=== PATIENT | female | born 1955 | race Caucasian/White ===

== ENCOUNTER → 2018-01-15 | Outpatient (CLI) | payer OTHER ==
[2017-10-02 15:25] VITALS: BMI 32.5
[~2018-01-15] MED LIST: ASPI-757 PO; HYDR-2966 PO; NALT50TA15 PO; OXYC-373 PO; SERT-184 PO; VAL80 PO; VALS-25 PO
[2018-01-15 08:51] LABS: PLATELET COUNT, AUTOMATED 229 K/uL (150-450)
[2018-01-15 09:33] LABS: LDL CHOLESTEROL 88 mg/dl
== END ==
LOC: LAB 08:32
PROVIDERS: ATTEND Nurse Practitioner Psychiatric/Mental Health
DX: Z00.00 Encounter for general adult medical examination without abnormal findings (principal)
CPT/HCPCS: 36415; 81001; 82040; 82247; 82310; 82374; 82435; 82465; 82565; 82947; 83718; 84075; 84132; 84155; 84295; 84443; 84450; 84460; 84478; 84520; 85025

== ENCOUNTER 2018-02-04 01:26 | Inpatient (IN) | payer OTHER ==
[2018-02-03 14:29] LABS: INR 1.01
[2018-02-04] VITALS (12 sets, daily range): BP systolic 125–157; BP diastolic 67–119
[~2018-02-04] VITALS: Ht 165.1 cm; Wt 88.5 kg
[2018-02-04] MEDS ORDERED: NORMOSOL R SOLN(*) 1000 ML BAG 1,000 ML IV PRN (07:00)
[2018-02-04] MEDS ORDERED: LIDOCAINE/SOD BICARB 8.4% SYR ID ONE (07:00)
[2018-02-04] MEDS ORDERED: cloNIDine EPIDUR INJ 100MCG/ML 40 MCG, ROPIVACAINE 0.5% 20 ML VIAL 25 ML, EPINEPHrine H... INJ ONE (07:00)
[2018-02-04] MEDS ORDERED: ceFAZolin(*) 2GM/D5W 50ML 50 ML IVPB ONE (07:00)
[2018-02-04] MEDS ORDERED: MIDAZOLAM 2 MG/2 ML VIAL IVP ONE (07:00)
[2018-02-04] MEDS ORDERED: TRANEXAMIC AC 1000 MG/10ML SDV 1,000 MG in DEXTROSE 5% 50 ML BAG 50 ML IV ONE (07:00)
[2018-02-04] MEDS ORDERED: FAMOTIDINE 20 MG TAB PO ONE (07:00)
[2018-02-04] MEDS ORDERED: BACITRACIN 50000 UNIT/VIAL 100,000 UNIT in NS 0.9% 3000 ML IRRIGATION BAG 3,000 ML IR ONE (07:00)
[2018-02-04] MEDS ORDERED: DEXMEDETOMIDINE HCL 200 MCG/2 ML IV ONE (08:00)
[2018-02-04] MEDS ORDERED: LABETALOL HCL 100 MG/20ML VIAL ONE (08:00)
[2018-02-04] MEDS ORDERED: ROCURONIUM BROM 10 MG/ML 5 ML ONE (08:00)
[2018-02-04] MEDS ORDERED: DEXAMETHASONE SOD PHOS 10MG/ML ONE (08:00)
[2018-02-04] MEDS ORDERED: ONDANSETRON 4 MG/2 ML VIAL ONE (08:00)
[2018-02-04] MEDS ORDERED: MIDAZOLAM 2 MG/2 ML VIAL ONE (08:04)
[2018-02-04] MEDS ORDERED: BUPIVACAINE/EPI 0.5% 50ML VIAL INFIL ONE (08:05)
[2018-02-04] MEDS ORDERED: fentaNYL CITR 100 MCG/2 ML AMP ONE ×3 (08:05→11:13)
[2018-02-04] MEDS ORDERED: HYDROmorphone HCL 2 MG/ML SDV ONE (08:49)
[2018-02-04] MEDS ORDERED: KETAMINE HCL 500 MG/10 ML VIAL ONE (09:13)
[2018-02-04] MEDS ORDERED: ZOLPIDEM TARTRATE 5 MG TAB PO PRN (11:15)
[2018-02-04] MEDS ORDERED: FLUSH 10 ML SYR IVP PRN (11:15)
[2018-02-04] MEDS ORDERED: MAGNESIUM HYDROXIDE* 30ML UDCP PO PRN (11:15)
[2018-02-04] MEDS ORDERED: LR 1000 ML BAG 1000 ML IV PRN (11:15)
[2018-02-04] MEDS ORDERED: diphenhydrAMINE 50 MG/ML VIAL IVP PRN (11:15)
[2018-02-04] MEDS ORDERED: BISACODYL 10 MG SUPP PR PRN (11:15)
[2018-02-04] MEDS ORDERED: ONDANSETRON 4 MG/2 ML VIAL IVP PRN (11:15)
[2018-02-04] MEDS ORDERED: diphenhydrAMINE 25 MG CAP PO PRN (11:15)
[2018-02-04] MEDS ORDERED: PROMETHAZINE 25 MG/ML 1 ML AMP IVP PRN (11:15)
[2018-02-04] MEDS ORDERED: MAGNESIUM CITRATE 300 ML BTL PO PRN (11:15)
--- NOTE | 2018-02-04 11:48 | RADIOLOGY IMAGING REPORT ---
FACILITY: [facility] PATIENT NAME: Lara Ch : 1955 MR: [id number] V: [id number] EXAM DATE: ORDERING PHYSICIAN: DUNIA LEIVA TECHNOLOGIST: Location: [facility] Patient: Lara Ch : 1955 Visit/Account:[id number] Date of Sevice: 02/04/2018 Technique: KNEE LIMITED RIGHT HISTORY: S/P R TKA Comparison studies: None FINDINGS: Present is a right knee arthroplasty. There is gross anatomic alignment. No acute fractur e. Expected adjacent postoperative changes are present. IMPRESSION: 1. Right knee arthroplasty without evidence of acute hardware complication. Report Dictated By: Gonzales Lamar DO at 02/04/2018 11:43 AM Report E-Signed By: Gonzales Lamar DO at 02/04/2018 11:44 AM WSN:[id number]
[2018-02-04] MEDS: HYDROmorphone HCL 2 MG/ML SDV IVP PRN ×2 (12:45→18:21)
--- NOTE | 2018-02-04 13:57 | Hospitalist Consultation ---
History of Present Illness Requesting Physician Dr. Carrion Reason for Consult Medication Management Chief Complaint s/p knee replacement History of Present Illness She was admitted s/p right knee replacement. There were no known complications from surgery. EBL 200cc. History Problems: (1) Essential hypertension Status: Chronic (2) Depression Status: Chronic (3) S/P knee replacement Status: Acute Home Meds Reported Medications Naltrexone Hcl (NALTREXONE HCL) 50 Mg Tablet, 50 MG PO DAILY 09/24/17 Sertraline Hcl (SERTRALINE HCL) 50 Mg Tablet, 1 TAB PO QDAY, TAB 09/24/17 Hydrochlorothiazide (HYDROCHLOROTHIAZIDE) 25 Mg Tablet, 25 TAB PO QDAY, TAB 09/24/17 Valsartan (DIOVAN) 80 Mg Tablet, 80 MG PO DAILY 09/24/17 Allergies: Coded Allergies: No Known Drug Allergies (Verified , 09/24/17) Patient History: FH: Crohn's disease MOTHER, FH: HTN (hypertension) MOTHER, Stent BROTHER OR SISTER Smoking Status: Former Smoker When Quit Tobacco?: 37 year ago Caffeine Intake: Coffee Caffeine/Cups Per Day: 1-2 Hx Alcohol Use: Yes Hx Substance Use Disorder: No Social Drug Use: Never Review of Systems All Systems Reviewed/Normal: Yes, Except as Noted Exam Vital Signs Vital Signs Date Time Temp Pulse Resp B/P (MAP) Pulse Ox O2 Delivery O2 Flow Rate FiO2 02/04/18 13:15 150/78 (102) 98 Nasal Cannula 02/04/18 13:00 66 02/04/18 11:37 98.1 12 4.0 General Appearance: Alert, Awake, No Acute Distress, Afebrile Cardiovascular: Regular Rate and Rhythm Respiratory: No Respiratory Distress, Clear to Auscultation GI: Abd Soft and Non-Tender Psych: Alert & Oriented X3, Appropriate Mood & Affect Assessment and Plan Problems: (1) S/P knee replacement Status: Acute Assessment & Plan: She will be started on ASA 325mg for DVT prophylaxis. (2) Essential hypertension Status: Chronic Assessment & Plan: She is on chronic treatment with Valsartan and Hydrochlorothiazide. She will be started on Valsartan with hold parameters. (3) Depression Status: Chronic Assessment & Plan: She is on chronic treatment with Sertraline. (4) Alcoholism in recovery Status: Chronic Assessment & Plan: She is on chronic treatment with Naltrexone. This will be stopped while she is on narcotics. Venous Thromboembolism Antithrombotics Is Pt On Any Antithrombotics?: No Prophylaxis Tx Contraindicated Pharmacological Contraindicati: Surgical Contraindication Problem Qualifiers (1) S/P knee replacement: Laterality: right Qualified Codes: Z96.651 - Presence of right artificial knee joint JESUS MCCRAYP Feb 04, 2018 13:57
--- NOTE | 2018-02-04 14:15 | OPERATIVE REPORT 1 ---
EVENT DATE: February 04, 2018 SURGEON: Lalo Carrion MD ANESTHESIOLOGIST: Jeyson Kelsey MD ANESTHESIA: General plus adductor block FINANCIAL PROCESSING CLERK: Maycol Conway PA-C PREOPERATIVE DIAGNOSIS Right knee osteoarthritis. POSTOPERATIVE DIAGNOSIS Right knee osteoarthritis. PROCEDURE PERFORMED Right total knee arthroplasty. FINDINGS The patient had a significant amount of arthritic changes associated with the knee, but was amenable for a total knee replacement. ESTIMATED BLOOD LOSS 250 mL. DRAINS None. COMPLICATIONS None. TOURNIQUET TIME About 14 minutes, which was up just during cementation of the components. IMPLANTS [employer] posterior stabilized system with a size 5 femur, a 5 x 6 mm insert , a 4 rotating base plate tibia and a 35 mm anatomic patella. SPECIMENS None. INDICATIONS AND HISTORY This patient is a 62-year-old female who presented to my clinic for evaluation of bilateral knee arthritis and irritation going on for some time. She continued to have pain and irritation despite conservative management and injections. She had the left knee replaced, and so she wanted to go ahead with the right knee today, February 04, 2018. The risks and benefits were discussed with the patient, and informed consent was obtained at the last clinic visit. DESCRIPTION OF PROCEDURE The patient was brought into the operating room. She and the procedure were both verified. She was placed supine on the operative table and given the adductor block by anesthesia. The right lower extremity was then prepped and draped in the usual fashion and time out was observed, verifying the correct patient and procedure. The standard incision was made over the anterior aspect of the knee through the skin and subcutaneous tissue. Once I was able to get through this area, I was then able to identify small bleeders throughout the area and cauterize them in order to make the case a clean, dry, sterile field. Once I did this, I was then able to make a medial parapatellar approach through the quad tendon, and then down around the medial side of the knee. This was then taken through the quad tendon, and then I also peeled back a little bit of the insertion of the MCL in order to gain access to the medial side. I then removed the anterior aspect of the lateral meniscus as well as the medial meniscus and part of the base of the ACL, and then removed the patellar fat pad without any major difficulty. Once I was able to do this, I was then able to remove the synovitic tissue from the suprapatellar aspect, and then was able to flex the knee up into a high flexion moment with the patella everted. I then was able to remove the rest of the ACL and some of the osteophytes off this area. I then drilled an intramedullary guide, and then used the Attune system intramedullary guide to then cut a 5 and 9 cut off the distal femur in order to make it amenable for the sizer. Once the sizer was on, I sized it to a 5, which was actually the same as the contralateral side, and then put in the 4-in-1 cutting block and cut the four cuts without any major difficulty, and we had good positioning and sizing of the block. This was then followed by the notch cutting block, and then removal of the central notch, and then removal of some of the posterior osteophytes off the posterior aspect of the femur. I then turned attention to the tibia, where I was able to put a posterior retractor into this area, and remove the rest of the PCL. I then put in a lateral retractor also and a small Z retractor on the medial side. Once I did this, I was able to remove the remainder of the menisci on both the medial and lateral sides, and then drilled the central intramedullary guide for the Attune system once again. We then put on the cutting jig on the anterior aspect of the knee, cutting a 3 mm aspect off the medial side. Once I did this, I was then able to cut without any difficulty, and we had a nice flat tibia, and sized to a 4 rotating base plate tibia. I then was able to cut the jig for the 4 rotating base plate tibia to put that in, put the 5 femoral trial on, and then put in a 5 mm poly insert. This was found to be a just a little bit too loose, and so we trialed the 6, and the 6 was much better and had better stability associated with the varus/valgus exam and anterior drawer type test and also the patella tracked very naturally. I then turned attention to the patella, where I was able to cut about 7 mm off the patella, and then was able to size it to a 35 mm anatomic patella. This was then drilled in standard fashion and trialed and made sure there were no signs of instability associated with the patella. I then put a lap into the wound, irrigated with copious amounts of saline as I had throughout the case using pulsatile lavage, and then put an Esmarch around the leg, and then put the tourniquet up for cementation of the components. I then cemented in the components without any difficulty and removed the excess cement, and then was able to trial it once again. There were no signs of catching or locking associated with it. Once the cement hardened, I then irrigated again with copious amounts of saline and then closed the medial parapatellar approach with a #1 Stratafix. This was then followed by 2-0 Vicryl in the subcutaneous fat, and then followed by 2-0 Stratafix in the subcutaneous tissue followed by a 4-0 Monocryl in the skin. We also put in a pain cocktail right before cementation, and TXA was utilized by anesthesia. This was then put a seal to the Bioclusive dressing, and the patient was awakened and extubated and transferred to PACU in stable condition. The tourniquet was let down after cementation of the components after 14 minutes, and then we will admit her overnight to the hospital. . TYRA
[2018-02-04] MEDS ORDERED: NS(*) 0.9% 250 ML BAG 250 ML ONE (15:54)
[2018-02-04] MEDS: ceFAZolin(*) 2GM/D5W 50ML 50 ML IVPB SCH ×2 (16:11→23:21)
[2018-02-04] MEDS: ASPIRIN 325 MG TAB PO SCH (20:47)
[2018-02-05 03:54] VITALS: BP 125/70
[2018-02-05 07:56] VITALS: BP 123/65
[2018-02-05] MEDS: SERTRALINE HCL 50 MG TAB PO SCH (08:14)
[2018-02-05] MEDS: ceFAZolin(*) 2GM/D5W 50ML 50 ML IVPB SCH (08:15)
--- NOTE | 2018-02-05 08:42 | Hospitalist Progress Note ---
Subjective Progress Notes Subjective Patient is doing well today. She states she had difficulty sleeping last night. Patient Complains of: Cardiovascular: No: Chest Pain Respiratory: No: Shortness of Breath Physical Exam Vital Signs Date Time Temp Pulse Resp B/P (MAP) Pulse Ox O2 Delivery O2 Flow Rate FiO2 02/05/18 07:56 98.2 71 16 123/65 (84) 93 Nasal Cannula 1.0 General Appearance: Alert, Awake, No Acute Distress, Afebrile Cardiovascular: Regular Rate and Rhythm Respiratory: No Respiratory Distress, Clear to Auscultation Psych: Alert & Oriented X3, Appropriate Mood & Affect Result Diagram: 02/05/18 0530 Assessment and Plan Problems: (1) S/P knee replacement Status: Acute Assessment & Plan: She will be started on ASA 325mg for DVT prophylaxis. She will continue Aspirin for 30 days post operative. (2) Essential hypertension Status: Chronic Assessment & Plan: She is on chronic treatment with Valsartan and Hydrochlorothiazide. She will be started on Valsartan with hold parameters. (3) Depression Status: Chronic Assessment & Plan: She is on chronic treatment with Sertraline. (4) Alcoholism in recovery Status: Chronic Assessment & Plan: She is on chronic treatment with Naltrexone. This will be stopped while she is on narcotics. Exam Sepsis Risk: No Definite Risk Problem Qualifiers (1) S/P knee replacement: Laterality: right Qualified Codes: Z96.651 - Presence of right artificial knee joint JESUS MCCRAY [employer] Feb 05, 2018 08:42
[2018-02-05] MEDS ORDERED: ASPI-757 PO (08:54)
[2018-02-05] MEDS: VALSARTAN 80 MG TAB PO SCH (09:00)
[2018-02-05 10:34] VITALS: BP 141/82
[2018-02-05] MEDS ORDERED: OXYC-865 PO (14:28)
[2018-02-05] MEDS: HYDROmorphone HCL 2 MG/ML SDV IVP PRN (14:58)
[2018-02-05 15:01] VITALS: BP 155/79
[2018-02-05 16:45] VITALS: Ht 165.1 cm; Wt 88.5 kg
[2018-02-05 19:46] VITALS: BP 166/78
[2018-02-05] MEDS: ASPIRIN 325 MG TAB PO SCH (21:20)
[2018-02-05 23:00] VITALS: BP 164/74
[2018-02-06 04:02] VITALS: BP 144/82
--- NOTE | 2018-02-06 08:24 | Hospitalist Progress Note ---
Subjective Progress Notes Subjective Patient states she is ready to go home today. Denies any problems overnight. Patient Complains of: Cardiovascular: No: Chest Pain Respiratory: No: Shortness of Breath Physical Exam Vital Signs Date Time Temp Pulse Resp B/P (MAP) Pulse Ox O2 Delivery O2 Flow Rate FiO2 02/06/18 04:10 85 02/06/18 04:02 98.9 78 16 144/82 (102) Nasal Cannula 1.0 General Appearance: Alert, Awake, No Acute Distress, Afebrile Cardiovascular: Regular Rate and Rhythm Respiratory: No Respiratory Distress, Clear to Auscultation Psych: Alert & Oriented X3, Appropriate Mood & Affect Result Diagram: 02/06/18 0540 Assessment and Plan Problems: (1) S/P knee replacement Status: Acute Assessment & Plan: She will be started on ASA 325mg for DVT prophylaxis. She will continue Aspirin for 30 days post operative. (2) Essential hypertension Status: Chronic Assessment & Plan: She is on chronic treatment with Valsartan and Hydrochlorothiazide. (3) Depression Status: Chronic Assessment & Plan: She is on chronic treatment with Sertraline. (4) Alcoholism in recovery Status: Chronic Assessment & Plan: She is on chronic treatment with Naltrexone. This will be stopped while she is on narcotics. Exam Sepsis Risk: No Definite Risk Problem Qualifiers (1) S/P knee replacement: Laterality: right Qualified Codes: Z96.651 - Presence of right artificial knee joint JESUS MCCRAY [facility] Feb 06, 2018 08:24
[2018-02-06] MEDS: SERTRALINE HCL 50 MG TAB PO SCH (08:37)
[2018-02-06] MEDS: VALSARTAN 80 MG TAB PO SCH (08:37)
== END 2018-02-06 10:20 | disposition home or self-care (01) | DRG 470 ==
LOC: OR 01:26 → INTOOBSV 11:37 → MED 11:37 → OBSVTOIN 11:37
PROVIDERS: ADMIT Orthopaedic Surgery; ATTEND Orthopaedic Surgery
PROC: 0SRC0J9 Replacement of Right Knee Joint with Synthetic Substitute, Cemented, Open Approach (ICD-10-PCS; principal; 2018-02-04 08:05)
DX: M17.11 Unilateral primary osteoarthritis, right knee (principal); I10 Essential (primary) hypertension; F41.8 Other specified anxiety disorders; F10.21 Alcohol dependence, in remission; Z96.652 Presence of left artificial knee joint; Z87.891 Personal history of nicotine dependence
CPT/HCPCS: 36415; 85014; 85018; 85610; 86850; 86900; 86901; 97161; C1713; C1776; J0690; J1100; J1170; J2250; J2405; J3010; J3490; J7050; J7060

== ENCOUNTER → 2019-04-07 | Outpatient (CLI) | payer OTHER ==
[2018-02-05 16:45] VITALS: BMI 32.5
[~2019-04-07] MED LIST changes: +OXYC-865 PO
--- NOTE | 2019-04-08 08:24 | RADIOLOGY IMAGING REPORT ---
FACILITY: [facility] PATIENT NAME: AMBER BOYD : [id number] MR: [id number] V: [id number] EXAM DATE: ORDERING PHYSICIAN: CHIKA TAVAREZ TECHNOLOGIST: Trini Herbert PROCEDURE: BILATERAL DIGITAL SCREENING MAMMOGRAM WITH CAD ASSISTED INTERPRETATION & 3D TOMOSYNTHESIS REASON FOR STUDY: Screening. FAMILY HISTORY OF BREAST CANCER: None. BREAST PROCEDURES/TREATMENTS: 2 benign surgical biopsies on the Right breast and 1 benign surgical biopsy on the Left breast. COMPARISON: Prior mammograms 10/17/17, 06/15/15, 06/11/14, 06/10/13. VIEWS OBTAINED: 2D & 3D full field CC & MLO. BREAST DENSITY: The breasts are heterogeneously dense which can obscure small masses. MAMMOGRAM FINDINGS: The parenchymal pattern has remained stable allowing for difference in mammographic technique & patient positioning. IMPRESSION: BIRADS 1: Negative. DIAGNOSTIC CATEGORY 1--NEGATIVE. RECOMMENDATIONS: ROUTINE MAMMOGRAM AND CLINICAL EVALUATION. Dictated by: Rosie Lazar M.D. on 04/07/2019 at 16:39 Transcribed by: BRINDA on 04/08/2019 at 8:20 Approved by: Rosie Lazar M.D. on 04/08/2019 at 8:23 [facility]
== END ==
LOC: MAMO 00:49
PROVIDERS: ATTEND Nurse Practitioner Psychiatric/Mental Health
DX: Z12.31 Encounter for screening mammogram for malignant neoplasm of breast (principal)
CPT/HCPCS: 77063; 77067